=== PATIENT | female | born 1990 | race Hispanic/Latino ===

== ENCOUNTER 2020-06-30 19:14 | Inpatient (IN) | payer SELFPAY ==
[2020-06-30] MEDS ORDERED: DEXAMETHASONE INJ 10 MG/ML VIAL IV ONE (19:36)
[2020-06-30] MEDS ORDERED: IPRATROPIUM BROMIDE NEBS 0.5 MG/2.5 ML VIAL NEB ONE (19:36)
[2020-06-30] MEDS ORDERED: cefTRIAXone SODIUM 1 GM in SODIUM CHL 0.9% 50ML MIN-BAG+ 50 ML IVPB ONE (19:36)
[2020-06-30] MEDS ORDERED: SODIUM CHLORIDE 0.9% 1000ML 1,000 ML IVS ONE (19:36)
[2020-06-30] MEDS ORDERED: ALBUTEROL SULFATE NEBS (ED DISPENSE) 2.5 MG/3 ML VIAL NEB ONE (19:37)
--- NOTE | 2020-06-30 19:40 | ED.PDOC ---
History of Present Illness - General Time Seen by Provider: 06/30/20 19:34 Additional Information: Patient is a 30-year-old female who presents to the ED with chief complaint of shortness of breath. Patient has had shortness of breath for approximately 1 week, slowly getting worse. She has a very frequent congested cough but nonproductive. She has pleuritic chest discomfort and a low-grade fever to 100.2. Patient was diagnosed with COVID earlier in the week. She is on no medications other than Excedrin for fever and pain. Patient denies intrinsic heart or lung disease. - History of Present Illness Allergies/Adverse Reactions: Allergies NO KNOWN ALLERGY Allergy (Verified 01/30/14 15:38) Review of Systems - Review of Systems Constitutional: States: fever, weakness EENTM: States: nose congestion Respiratory: States: cough, short of breath. Denies: orthopnea Cardiology: Denies: chest pain Gastrointestinal/Abdominal: Denies: abdominal pain, nausea, vomiting Musculoskeletal: States: muscle pain Skin: Denies: rash Neurological: States: no symptoms reported All other Systems: Reviewed and Negative Past Medical History (General) - Patient Medical History Hx Seizures: No Hx Stroke: No Hx Dementia: No Hx Asthma: No Hx of COPD: No Hx Cardiac Disorders: No Hx Congestive Heart Failure: No Hx Pacemaker: No Hx Hypertension: No Hx Thyroid Disease: No Hx Diabetes: No Hx Gastroesophageal Reflux: No Hx Renal Disease: No Hx Cancer: No Hx of HIV: No Hx Hepatitis C: No Hx MRSA: No Surgical History: tonsillectomy - Vaccination History Hx Tetanus, Diphtheria Vaccination: Yes Hx Influenza Vaccination: Yes Hx Pneumococcal Vaccination: Yes - Social History Hx Tobacco Use: No Hx Chewing Tobacco Use: No Hx Alcohol Use: Yes Hx Substance Use: No Hx Substance Use Treatment: No Hx Depression: No Feels Threatened In Home Enviroment: No Feels Threatened In a Relationship: No Hx Physical Abuse: No Hx Emotional Abuse: No Hx Suspected Abuse: No - Female History Patient is a Female of Child Bearing Age (10 -59 yrs old): Yes Patient : No - Triage Comment ED Triage Comment: The patient was obviously having difficulty breathing and had a noted cough. The patient advised that she had been coughing up a clear fluid and that had started today. She did not appear in distress but had a noted room air O2 of 88%. She had no other noted complaints and did not have a fever noted at time of assessment. Family Medical History - Family History Mother Family History: Unknown Physical Exam - Physical Exam General Appearance: Alert, Anxious, Obvious distress, Ill Appearing, Obese, Other - Patient with a frequent dry cough. Neck: supple, normal inspection Respiratory: normal breath sounds, respiratory distress - Mild, accessory muscle use Cardiovascular/Chest: normal peripheral pulses, no edema, no gallop, no JVD, no murmur, tachycardia Gastrointestinal/Abdominal: non tender, soft Extremity: normal inspection, no pedal edema Neurologic: no motor/sensory deficits, alert, normal mood/affect Skin Exam: normal color, warm/dry Progress - Progress Progress: 06/30/20 19:42 Differential diagnosis includes but is not limited to sepsis, pneumonia, COVID, Bronchitis 06/30/20 21:25 Patient reassessed and is feeling much better status post nebulizer treatment. Patient is COVID positive from testing prior to today and her CT and chest x-ray are consistent with COVID pneumonia but showed no evidence of bacterial pneumonia or PE. Patient presented hypoxic at 88% with a frequent dry cough that has now resolved and she has acceptable O2 sats in the mid to high 90s on nasal cannula. IV Decadron and antibiotics have been given empirically I have discussed case with Kyrie Mandel, hospitalist, who accepts patient for admission. Patient is stable at this time. Departure - Departure Clinical Impression: Pneumonia due to COVID-19 virus, Hypoxemia Time of Disposition: 21:28 Disposition: Admit Patient Condition: Fair Decision To Admit - Decistion To Admit Decision to Admit Reason: Admit from ER Decision to Admit Date: 06/30/20 Decision to Admit Time: 21:29
[2020-06-30] MEDS ORDERED: ALBUTEROL SULFATE 2.5 MG/3 ML VIAL NEB ONE (19:50)
--- NOTE | 2020-06-30 20:18 | RAD ---
EXAM DESCRIPTION: Chest,1 View CLINICAL HISTORY: 30 years Female, SOB COMPARISON: None TECHNIQUE: Single AP chest radiograph. FINDINGS: Diffuse bilateral hazy lung opacities. No pneumothorax or pleural effusion. Normal cardiomediastinal contour. Normal osseous structures. IMPRESSION: 1. Diffuse bilateral lung opacities. Differential is concerning for multifocal infection, such as viral pneumonitis. Electronically signed by: Joshua Stanley MD 06/30/2020 8:16 PM CDT
--- NOTE | 2020-06-30 21:13 | CT ---
EXAM: CTA Chest HISTORY: COVID, SOB COMPARISON: 06/30/2020 TECHNIQUE: Contiguous axial CTA images of the chest were obtained from the thoracic inlet to the upper abdomen after administration of intravenous contrast followed by multiplanar reformats. 3-D postprocessing was performed. This exam was performed according to our departmental dose-optimization program, which includes automated exposure control, adjustment of the mA and/or kV according to patient size and/or use of iterative reconstruction technique. FINDINGS: There is adequate opacification of the pulmonary arterial vasculature. There is no evidence of pulmonary embolus. Heart size normal. No evidence of right heart strain. No pericardial effusion. No mediastinal adenopathy. Central airways are patent. Great vessels are normal. Extensive bilateral nodular groundglass pulmonary opacities consistent with viral pneumonitis. No pneumothorax or pleural effusion. Limited visualization of upper abdominal contents is unremarkable for an acute process. No destructive osseous lesion. IMPRESSION: 1. No evidence of pulmonary embolus. 2. Bilateral pulmonary opacities, consistent with viral pneumonitis. Pattern is typical of COVID. Electronically signed by: Joshua Stanley MD 06/30/2020 9:12 PM CDT
--- NOTE | 2020-06-30 22:18 | HP ---
SUPERVISING PHYSICIAN: Lacho Benito M.D. CHIEF COMPLAINT: Increasing shortness of breath, positive COVID testing. HISTORY OF PRESENT ILLNESS: Ms. Carrington is a 30 year-old female patient with no significant medical history. She reported to the Emergency Room last night with the chief complaint of shortness of breath for about a week. She endorses that on 06/22/20 she started feeling febrile, achy and when the cough and shortness of breath progressively worsened she went to see the drive-through clinic at [facility] on the first and tested positive for COVID. She was not started on any medications at that time other than Tylenol and stayed isolated at home, but became increasingly worse over the last 24 hours and thus presented to the Emergency Department for evaluation. In the Emergency Room, she was found to have a low-grade temperature of 100.2. A CTA of the chest showed no evidence of pulmonary embolus but bilateral pulmonary opacities consistent with viral pneumonitis typical of COVID. She was started on treatment with Decadron, breathing treatments, antibiotics and now is going to be admitted for further treatment of COVID pneumonitis pneumonia failing to respond to outpatient treatment measures. She was in stable condition at time of admission. PAST MEDICAL HISTORY: No chronic illnesses listed. PAST SURGICAL HISTORY: 1. Tonsillectomy as a child. HOME MEDICATIONS: No chronic home medications. ALLERGIES: NO KNOWN DRUG ALLERGIES. LAST MENSTRUAL PERIOD: Current on her period. FAMILY HISTORY: Noncontributory. 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 She is . She lives in [place]. She has never smoked. Does not use tobacco and only drinks alcohol on a rare occasion. REVIEW OF SYSTEMS: CONSTITUTIONAL: Positive for general malaise, fevers and weakness. HEENT: Positive for nasal congestion. Denies any headaches, sore throats, earaches, vision changes. RESPIRATORY: As noted in History of Present Illness, increasing worsening shortness of breath, cough. Denies any orthopnea or wheezing. CARDIOVASCULAR: Denies any chest pains, palpitations or syncopal episodes. GASTROINTESTINAL: Denies any nausea, vomiting, diarrhea, constipation or abdominal pain. GENITOURINARY: Denies any dysuria, hematuria, polyuria. MUSCULOSKELETAL: Generalized muscle pains. Denies any joint swelling. SKIN: Denies any rashes, lesions, moles or unexplained changes. NEUROLOGIC: Denies any focal motor deficits, seizures, ataxia. HEMATOLOGIC: Denies any easy bruising or unexplained bleeding or transfusion reactions. PHYSICAL EXAMINATION: VITAL SIGNS: On admission, temperature 100.1, pulse 120, blood pressure 150/75, respirations 20 to 24, satting 88% on room air, improving after breathing treatments and high flow nasal cannula to 92%. GENERAL: The patient on exam on the Medical floor does not show to be in any obvious distress. She looks a little short of breath but is moderately obese. She does have a frequent dry cough. HEENT: Tympanic membranes clear bilaterally. Oropharynx is pink, moist without any lesions. NECK: Supple, nontender with full range of motion. No jugular venous distention noted. RESPIRATORY: Lung sounds were fairly clear throughout, just a little diminished towards the bases. She was using some mild accessory muscles but talking in complete sentences. HEART: Regular rate and rhythm without any appreciable murmurs, gallops, or rubs. ABDOMEN: Obese but soft, nontender. Positive bowel sounds. EXTREMITIES: Without any edema, clubbing or cyanosis. NEUROLOGIC: She is alert and oriented times three. Facial features were symmetrical. Extraocular movements are within normal limits. There is no nystagmus. SKIN: Warm, pink and dry. LABORATORY: White count 3,900. Differential showed to be without a left shift. Hemoglobin 13.7, hematocrit 39.7, platelet count 192,000. Coagulation studies showed a PTT of 28.2, initial D-dimer was 555, fibrinogen 436. Chemistries on admission showed sodium 134, potassium 3.5, anion gap normal at 50, carbon dioxide normal at 22, BUN 8, creatinine 0.54, lactic acid 1.1, calcium 8.3, magnesium 1.8. Initial ferritin 669. Bilirubin normal. AST a little elevated at 89 as well as ALT at 87. Initial LDH was 343, creatinine 395, troponin less than 0.02. Initial C reactive protein was 7.6. Serum HCG was negative. Urinalysis showed 100 of glucose, small amount of blood, otherwise within normal limits. MICROBIOLOGY: No specimens were submitted at time of admission. RADIOLOGY: Again, CT of the chest showed no evidence of pulmonary embolus per radiology interpretation, but bilateral pulmonary opacities consistent with viral pneumonitis pattern typical of COVID. ASSESSMENT: 1. COVID-19 pneumonia. 2. Mild electrolyte imbalance with hypokalemia. 3. Moderate obesity with a body mass index of 51.3. PLAN: Ms. Carrington is going to be admitted for COVID isolation and treatment per protocol. She was started on Decadron in the Emergency Room and is continued with 6 mg daily for 10 days. She was also started on Rocephin. This will be followed-up with azithromycin. She will be on Lovenox as well at 40 mg daily given that she only had a slightly elevated D-dimer. She will be on breathing treatments with inhaled Albuterol scheduled and p.r.n. I have encouraged her to prone as much as possible and to rotate to the left and right as much as possible to prevent lying supine. She will be on oxygen as needed to maintain O2 saturations above 92%. Anticipate length of stay to be at least 3 to 4 days, if not longer. Until we can transition her to outpatient management will continue to monitor and treat as needed. #[id number] [facility]
[2020-06-30] MEDS ORDERED: ACETAMINOPHEN 325 MG TAB PO PRN (23:36)
[2020-06-30] MEDS ORDERED: MAGNESIUM HYDROXIDE 30 ML UD PO PRN (23:36)
[2020-06-30] MEDS ORDERED: ONDANSETRON INJ 4 MG/2 ML VIAL IV PRN (23:36)
[2020-06-30] MEDS ORDERED: IBUPROFEN 400 MG TAB PO PRN (23:36)
[2020-06-30] MEDS ORDERED: SODIUM CHLORIDE 0.9% (FLUSH) 10 ML SYG IV PRN (23:36)
[2020-06-30] MEDS ORDERED: TEMAZEPAM 15 MG CAP PO PRN (23:36)
[2020-06-30] MEDS ORDERED: IV SET AND CAP CHANGE INJ INJ SCH (23:45)
[2020-06-30] MEDS ORDERED: ALBUTEROL INHALER 64 PUFF/8GM INH PRN (23:49)
[2020-07-01] MEDS: ALBUTEROL INHALER 64 PUFF/8GM INH SCH ×6 (00:05→19:40)
[2020-07-01] MEDS ORDERED: HYDROcodone 5MG/APAP 325MG 1 EA TAB ONE ×3 (00:09→23:11)
[2020-07-01] MEDS ORDERED: SODIUM CHLORIDE 0.9% 250ML 250 ML ONE ×2 (00:10→23:09)
[2020-07-01] MEDS ORDERED: PROMETHAZINE W/CODEINE SYR 5 ML UD PO ONE ×3 (00:10→09:26)
[2020-07-01] MEDS ORDERED: AZITHROMYCIN IV 500 MG VIAL IVPB ONE ×2 (00:10→23:09)
[2020-07-01] MEDS: AZITHROMYCIN IV 500 MG in SODIUM CHLORIDE 0.9% 250ML 250 ML IVPB SCH (00:19)
[2020-07-01] MEDS: PROMETHAZINE W/CODEINE SYR 5 ML UD PO PRN ×3 (00:20→09:30)
[2020-07-01] MEDS: HYDROcodone 5MG/APAP 325MG 1 EA TAB PO PRN ×2 (00:20→18:31)
[2020-07-01] MEDS ORDERED: ALBUTEROL INHALER 64 PUFF/8GM INH ONE (01:31)
[2020-07-01] MEDS ORDERED: PANTOPRAZOLE SODIUM IV 40 MG VIAL ONE (05:22)
[2020-07-01] MEDS: PANTOPRAZOLE SODIUM IV 40 MG VIAL IV SCH (06:01)
[2020-07-01] MEDS ORDERED: DEXAMETHASONE INJ 10 MG/ML VIAL ONE (08:03)
[2020-07-01] MEDS ORDERED: cefTRIAXone SODIUM 1 GM VIAL ONE (08:03)
[2020-07-01] MEDS ORDERED: SODIUM CHL 0.9% 50ML MIN-BAG+ 50 ML IVPB ONE (08:03)
[2020-07-01] MEDS: DEXAMETHASONE INJ 10 MG/ML VIAL IV SCH (08:08)
[2020-07-01] MEDS: cefTRIAXone SODIUM 1 GM in SODIUM CHL 0.9% 50ML MIN-BAG+ 50 ML IVPB SCH (08:08)
[2020-07-01] MEDS ORDERED: ENOXAPARIN SODIUM 40 MG/0.4 ML SYG SUBCU ONE (09:30)
[2020-07-01] MEDS: ENOXAPARIN SODIUM 40 MG/0.4 ML SYG SUBCU SCH (09:30)
[2020-07-02] MEDS: AZITHROMYCIN IV 500 MG in SODIUM CHLORIDE 0.9% 250ML 250 ML IVPB SCH (00:15)
[2020-07-02] MEDS: PROMETHAZINE W/CODEINE SYR 5 ML UD PO PRN ×2 (00:25→04:25)
[2020-07-02] MEDS ORDERED: PROMETHAZINE W/CODEINE SYR 5 ML UD PO ONE ×2 (00:26→04:06)
[2020-07-02] MEDS: HYDROcodone 5MG/APAP 325MG 1 EA TAB PO PRN ×2 (00:32→05:40)
[2020-07-02] MEDS: ALBUTEROL INHALER 64 PUFF/8GM INH SCH ×3 (04:00→08:10)
[2020-07-02] MEDS ORDERED: PANTOPRAZOLE SODIUM IV 40 MG VIAL ONE (04:59)
[2020-07-02] MEDS ORDERED: HYDROcodone 5MG/APAP 325MG 1 EA TAB ONE (04:59)
[2020-07-02] MEDS: PANTOPRAZOLE SODIUM IV 40 MG VIAL IV SCH (06:20)
[2020-07-02] MEDS ORDERED: cefTRIAXone SODIUM 1 GM VIAL ONE (07:47)
[2020-07-02] MEDS ORDERED: DEXAMETHASONE INJ 10 MG/ML VIAL ONE (07:47)
[2020-07-02] MEDS ORDERED: ENOXAPARIN SODIUM 40 MG/0.4 ML SYG SUBCU ONE (07:47)
[2020-07-02] MEDS ORDERED: SODIUM CHLORIDE 0.9% (FLUSH) 10 ML SYG ONE (07:48)
[2020-07-02] MEDS ORDERED: SODIUM CHL 0.9% 50ML MIN-BAG+ 0 ML IVPB ONE (07:48)
--- NOTE | 2020-07-02 08:22 | PN ---
SUPERVISING PHYSICIAN: Reina Benito MD DATE: 07/01/20 SUBJECTIVE: The patient remains stable, but she is also short of breath requiring continued amounts of high flow oxygen to maintain saturations of 92%. She is not showing any respiratory distress. She does have dry, nonproductive cough. She has been afebrile since admission. No nausea, vomiting or diarrhea. No chest pains reported. OBJECTIVE: VITAL SIGNS: Temperature 97.9, pulse 90, blood pressure 125/71, saturation 87% to 96% on high-flow anywhere from 5 to 10 liters with the patient becoming significantly short of breath and desaturating with any ambulation or exertional effort. GENERAL: The patient is resting comfortably. She does not appear to be in any responsibility distress when resting. She is alert. CHEST: Sounds are diminished throughout with some notable rhonchi heard bilaterally, more prominent on the right than the left. No wheezing noted. HEART: Regular rate and rhythm. ABDOMEN: Obese, but soft and nontender. Positive bowel sounds. EXTREMITIES: No edema. NEUROLOGIC: Alert and oriented times three. LABORATORY: White count 3,100, hemoglobin 13.4, hematocrit 39.2, platelet count 203,000. Differential with a left shift. Coagulation studies show PTT 27.4, fibrinogen 502, D-dimer down to 445. Chemistries show normal electrolytes with BUN less than 5, creatinine 0.6. Calcium 8.5, magnesium 2.2, AST 78, ALT 82, LDH 354, C-reactive protein 8 which is up from admission. BNP less than 15. RADIOLOGY: No additional studies from last night. ASSESSMENT: 1. COVID-19 pneumonia with hypoxia on high-flow oxygen and elevated inflammatory markers. 2. Mild electrolyte imbalance with hypokalemia, resolved. 3. Moderate obesity with a body mass index of 51. PLAN: We will continue the current plan per protocol for COVID isolation and Decadron, Rocephin, azithromycin and Lovenox. D-dimer was slightly elevated on admission trending already. We will go ahead and leave her on 40 mg daily. She still remains on albuterol inhaled inhalers. I encouraged her to self prone if possible and we will work to titrate her oxygen down. Anticipate she will probably go home on oxygen and hopefully she will continue to show improvement over the next 3 to 4 days and discharge home. Until the patient can transition to outpatient management, we will continue to monitor and treat as needed. #[id number] [facility]
[2020-07-02 09:29] VITALS: O2SAT 90
[2020-07-02 09:58] VITALS: BP 117/69; TEMP 98.6
[2020-07-02] MEDS: DEXAMETHASONE INJ 10 MG/ML VIAL IV SCH (10:01)
[2020-07-02] MEDS: cefTRIAXone SODIUM 1 GM in SODIUM CHL 0.9% 50ML MIN-BAG+ 50 ML IVPB SCH (10:02)
[2020-07-02] MEDS: ENOXAPARIN SODIUM 40 MG/0.4 ML SYG SUBCU SCH (10:02)
--- NOTE | 2020-07-02 11:06 | DS ---
SUPERVISING PHYSICIAN: Landry Whyte M.D. ADMISSION DIAGNOSIS: 1. COVID-19 pneumonia. 2. Electrolyte imbalance. 3. Morbid obesity. DISCHARGE DIAGNOSIS: 1. COVID-19 pneumonia. 2. Electrolyte imbalance. 3. Morbid obesity. HISTORY OF PRESENT ILLNESS: This is a 30 year-old female who came into the Emergency Room with shortness of breath. She was diagnosed, according to the History and Physical on 06/22/20, with COVID-19. She was sent home to treat with Tylenol and isolate, however was noted to have increased shortness of breath over the 24 hours prior to admission. This would have been 06/29/20. She was actually admitted on 06/30/20 and placed on IV Decadron, azithromycin and Rocephin empirically. Over the time frame in the admission she was noted to have increased oxygen requirements. This morning, her O2 requirements are 15 liters of oxygen. She is satting about 88%. She is mildly tachypneic but alert and oriented and not in severe distress. Due to increased oxygen requirements and need for convalescent plasma, the patient will be discharged to [facility] in [place]. Dr. Reece is the hospitalist who expected admission, however the patient will be sent directly to the Emergency Room first. I did speak with Dr. Burch regarding this. Further care will be done at [facility]. #[id number] [facility]
== END 2020-07-02 09:45 | disposition short-term general hospital (02) | DRG 177 ==
LOC: ER 19:14 → OBSVTOIN 22:17 → MS 22:17
PROVIDERS: ADMIT Nurse Practitioner Family; ATTEND Nurse Practitioner
PROC: B32T1ZZ Computerized Tomography (CT Scan) of Left Pulmonary Artery using Low Osmolar Contrast (ICD-10-PCS; principal; 2020-06-30)
PROC: B32S1ZZ Computerized Tomography (CT Scan) of Right Pulmonary Artery using Low Osmolar Contrast (ICD-10-PCS; 2020-06-30)
DX: U07.1 COVID-19 (principal); J12.89 Other viral pneumonia; Z68.43 Body mass index [BMI] 50.0-59.9, adult; R09.02 Hypoxemia; E87.6 Hypokalemia; E66.01 Morbid (severe) obesity due to excess calories

== ENCOUNTER → 2020-07-24 | Outpatient (CLI) | payer SELFPAY | LOC: HHH 12:52 | PROVIDERS: ATTEND Family Medicine | DX: D64.9 Anemia, unspecified (principal) ==

== ENCOUNTER → 2020-08-07 | Outpatient (CLI) | payer SELFPAY | LOC: HHH 10:22 | PROVIDERS: ATTEND Family Medicine | DX: Z13.1 Encounter for screening for diabetes mellitus (principal); E66.9 Obesity, unspecified; Z86.39 Personal history of other endocrine, nutritional and metabolic disease ==

== ENCOUNTER → 2020-11-09 | Outpatient (CLI) | payer SELFPAY | LOC: YCFC.O 09:37 | PROVIDERS: ATTEND Nurse Practitioner Family | DX: Z13.1 Encounter for screening for diabetes mellitus (principal); Z86.2 Personal history of diseases of the blood and blood-forming organs and certain disorders involving the immune mechanism; L65.9 Nonscarring hair loss, unspecified ==